=== PATIENT | male | born 1945 | race American Indian/Alaskan Native ===

== ENCOUNTER 2018-07-08 11:05 | Day surgery (SDC) | payer OTHER ==
[~2018-07-08 11:05] MED LIST: NACL 0.9% 1000 ML 1,000 ML IV SCH
--- NOTE | 2018-07-08 13:45 | Anesthesia Consultation ---
Anesthesia Consult and Med Hx Date of service: 07/08/18 - Airway Anesthetic Teeth Evaluation: Good ROM Head & Neck: Adequate Mental/Hyoid Distance: Adequate Mallampati Class: Class II Intubation Access Assessment: Probably Good - Pulmonary Exam CTA: Yes - Cardiac Exam Cardiac Exam: RRR - Pre-Operative Health Status ASA Pre-Surgery Classification: ASA2 Proposed Anesthetic Plan: MAC - Cardiovascular System Hx Hypertension: Yes - Gastrointestinal Hx Gastroesophageal Reflux Disease: Yes (omeprazole, presently asymptomatic) - Endocrine Hx Non-Insulin Dependent Diabetes: Yes
--- NOTE | 2018-07-08 13:47 | Anesthesia Day of Surgery ---
Anesthesia Day of Surgery - Day of Surgery Patient Examined: Yes Patient H&P Reviewed: Yes Patient is NPO: Yes Beta Blockers: Yes
[2018-07-08] MEDS ORDERED: DIPRIVAN 10 MG/ML IV ONE ×2 (15:28)
[2018-07-08] MEDS ORDERED: WATER FOR IRRIG STERILE ONE (15:43)
[2018-07-08] MEDS ORDERED: WATER FOR IRRIG STERILE IR ONE (15:43)
--- NOTE | 2018-07-08 16:22 | Operative Report ---
Operative Report Operative Report: Date of procedure: 07/08/2018 Procedure: Colonoscopy with Multiple Snare polypectomies, Multiple submucosal injection, Ablation of Polyp Base. Attending physician: Dustin Claudio M.D. Survey Engineer: Dustin Claudio M.D. Indication: Patient is a 73-year-old male who presents for screening colon oscopy. Patient also has a history of blood in stool and rectal bleeding and also progressive constipation. This colonoscopy serves to evaluate patient so that treatment may be directed based on the findings. Consent: Informed consent was obtained after advising the patient and family regarding nature of this procedure, its indications, potential benefits as well as possible complications including but not limited to bleeding perforation and adverse reaction to medication, infection as well as other cardiopulmonary complications. An informed written and verbal consent was then obtained after due opportunity was provided for questions and answers. Monitoring: Patient was monitored continuously with pulse oximetry and electrocardiographic recordings as well as blood pressure recordings. Vital signs remained stable throughout this procedure with no untoward events. Preoperative assessment: Patient was assessed immediately prior to this procedure for capacity to tolerate monitored anesthesia care and moderate sedation as well as general anesthesia. Patient's ASA classification is 2, Mallampati class is 2, Hyomental distance is 3. Instrument: [employer] video colonoscope. Medications: Propofol given intravenously in divided doses. For details please refer to anesthesia records. Description of procedure: Patient was placed in the left lateral decubitus position after achieving sedation, a digital rectal examination was performed following which the colonoscope was introduced into the anal verge and advanced to the cecum which was identified by the cecal valve, the appendiceal orifice, as well as by the cecal strap and direct transillumination. The colonoscope was subsequently withdrawn with careful inspection of all mucosal surfaces. Patient tolerated this procedure well and was subsequently taken to the recovery room. The following findings were noted. Findings: Patient had a broad-based flat polyp seen in the ascending colon, measuring about 8 mm. This was elevated with submucosal injection of saline and removed by snare electrocautery and retrieved. There was a 7 mm flat polyp in the distal ascending colon. It was elevated with submucosal injection of saline and removed by snare polypectomy. In the sigmoid colon, there was a 9 mm sessile polyp which was elevated with submucosal injection of saline and removed snare electrocautery and retrieved. The base of the polyp was then ablated. There were a few diverticula in the sigmoid colon. There were no additional lesions seen. Patient was noted to have prominent large internal hemorrhoids seen on the retroflexed view at the anal verge. Patient had substantial retained stool throughout the colon particularly in the ascending colon and cecum. Impression: Ascending colon polyps x2 status post snare polypectomy and submucosal injection Sigmoid colon polyp status post submucosal injection with snare polypectomy and ablation. Diverticular disease of the sigmoid colon. Prominent internal hemorrhoids. Slight retained stool Plan: Follow pathology report. High-fiber diet. Patient most likely will benefit from hemorrhoidal band ligation given the size of his internal hemorrhoids. Repeat colonoscopy in one year due to poor colonoscopic preparation
--- NOTE | 2018-07-08 16:23 | Discharge Summary ---
Short Stay Discharge Plan Activity: advance as tolerated Weight Bearing Status: Weight Bear as Tolerated Diet: regular Additional Instructions: Post Sedation D/C Instructions When you return home you may resume your regular diet unless otherwise directed. - Go directly home from the hospital and rest quietly. You may resume normal activities tomorrow. - Do NOT drive, return to work, operate any machinery or make any important personal or business decisions today. - Do NOT drink any alcohol or take nerve or sleeping drugs. They add to the effects of the medicine still present in your body. No Aspirin or Aspirin products for 4 days. Follow up with: JUSTIN HOLDER MD [Primary Care Provider] - 7 Days
[2018-07-08 16:43] VITALS: BP 118/73
== END 2018-07-08 11:06 | disposition home or self-care (01) ==
LOC: GIO 11:05
PROVIDERS: ATTEND Internal Medicine Gastroenterology
DX: D12.2 Benign neoplasm of ascending colon (principal); D12.5 Benign neoplasm of sigmoid colon; K57.30 Diverticulosis of large intestine without perforation or abscess without bleeding; K64.8 Other hemorrhoids; E78.00 Pure hypercholesterolemia, unspecified; I10 Essential (primary) hypertension; E11.9 Type 2 diabetes mellitus without complications; K21.9 Gastro-esophageal reflux disease without esophagitis; Z79.899 Other long term (current) drug therapy; Z79.82 Long term (current) use of aspirin; Z79.84 Long term (current) use of oral hypoglycemic drugs; Z87.891 Personal history of nicotine dependence; Z88.8 Allergy status to other drugs, medicaments and biological substances
CPT/HCPCS: 45381; 45385; 88305; J2704; J7030